=== PATIENT | male | born 1995 | race Two or more races ===

== ENCOUNTER 2016-07-16 13:35 | Emergency (ER) | payer BC, OTHER ==
[2016-07-16 14:02] VITALS: BP 129/76; PULSE 72; RESP 16; TEMP 98.1; O2SAT 97
--- NOTE | 2016-07-16 14:47 | UCPHY ---
H & P Time Seen by Provider: 07/16/16 14:28 Patient Type: New HPI/ROS: CHIEF COMPLAINT: Irritation an pus from umbilicus HISTORY OF PRESENT ILLNESS: 20-year-old immunocompetent male, no history of diabetes, complaining of 3 days of discharge from his umbilicus and irritation. No abdominal or umbilical trauma or piercing. No abdominal pain. No fever no chills. Normal bowel movements PHYSICAL EXAM (Prior to examination, patient consented to physical exam, hands were washed and my usual and customary physical exam procedures followed) 1) GENERAL: Well-developed, well-nourished, alert and oriented. Appears to be in no acute distress. 2) HEAD: Normocephalic 3) HEENT: sclera anicteric 4) LUNGS: Breathing comfortably. 5) SKIN: the patient's umbilicus he has crusted discharge which is cleaned by myself and explored to its base showing irritated tissue in the deeper portions with no fetid odor. [6) Abdomen: Umbilicus explored with a gloved finger and patient asked to bear down and no masses, no umbilical hernia appreciated Smoking Status: Never smoked Constitutional: Initial Vital Signs Temperature (C) 36.7 C 07/16/16 13:43 Heart Rate 72 07/16/16 13:43 Respiratory Rate 16 07/16/16 13:43 Blood Pressure 129/76 H 07/16/16 13:43 O2 Sat (%) 97 07/16/16 13:43 O2 Delivery Mode Room Air Allergies/Adverse Reactions: No Known Allergies Allergy (Unverified 07/16/16 13:47) Home Medications: Medication Instructions Recorded Erythromycin Base [Erythromycin] 3.5 gm OP BID #15 oint...g. 07/16/16 MDM/Departure - MDM Procedures: Wound cleaning with hydrogen peroxide performed by myself. ED Course/Re-evaluation: Patient appears well overall. On palpation he has no evidence of an umbilical hernia. I think his symptoms are more than likely secondary to intertriginous erythrasma. We discussed common I recommended wound cleaning 3 times daily and application of topical erythromycin ointment. Given the localized area I think that oral antibiotics can be held at this point. He has been given strict return precautions instructions. Doubt umbilical hernia. Doubt acute surgical abdominal pathology. - Depart Disposition: Home, Routine, Self-Care Clinical Impression: Erythrasma Condition: Good Instructions: Dermatitis (ED) Additional Instructions: If you develop abdominal pain, fevers, spreading, you need to go to the closest emergency department. Prescriptions: Erythromycin Base [Erythromycin] 3.5 gm OP BID #15 oint...g. Referrals: DEREK PITTS [Primary Care Provider] - 1-2 days without fail - PQRS PQRS Measurement: n/a
== END 2016-07-16 15:03 | disposition home or self-care (01) ==
LOC: CED 13:35
DX: L30.9 Dermatitis, unspecified (principal)
CPT/HCPCS: G0463-PO